=== PATIENT | male | born 1985 | race Two or more races ===

== ENCOUNTER 2016-09-20 12:08 | Emergency (ER) | payer SELFPAY ==
[~2016-09-20] VITALS: Ht 170.2 cm; Wt 104.5 kg
[~2016-09-20 12:08] MED LIST: DEXTLIQ PO; NEXI20CA PO
[2016-09-20 12:18] VITALS: BP 134/83; PULSE 66; RESP 16; TEMP 98.7; O2SAT 98
[2016-09-20] MEDS ORDERED: IBUP800T23 PO (12:31)
--- NOTE | 2016-09-20 12:48 | PD ---
HPI Chief Complaint: Back/ Neck Pain or Injury Time Seen by Provider: 12:47 Travel History International Travel<30 days: No Contact w/Intl Traveler<30days: No Traveled to known affect area: No History of Present Illness HPI 31-year-old male with PMH of chronic low back pain presents to the ED for evaluation of 24 hour history of low back pain radiating down the outer aspects of both legs, sparing the feet bilaterally. The patient endorses tingling. He denies numbness, weakness, limitations to range of motion of the lower extremities or loss of strength. He denies saddle anesthesia or incontinence. He treated with ibuprofen with only mild improvement of symptoms. PFSH Past Medical History Gastrointestinal Disorders: Yes (GASTRITIS) Herniated Disk: Yes Hypertension: Yes (BORDERLINE) Influenza Vaccination: No Past Surgical History Cholecystectomy: Yes (2011) Other Surgery: Yes (BACK SUGERY: 2 DISCS RUPTURED: 2011) Social History Alcohol Use: Yes (ON WEEKENDS) Tobacco Use: Yes (1-2 DAILY) Substance Use: No Allergies-Medications (Allergen,Severity, Reaction): Coded Allergies: Penicillin (Unverified Allergy, Unknown, "BEEN TOLD SINCE I WAS LITTLE THAT I WAS ALLERGIC. DON'T, 09/20/16) "BEEN TOLD SINCE I WAS LITTLE THAT I WAS ALLERGIC. DON'T KNOW WHAT IT DOES TO ME" Reported Meds & Prescriptions Reported Meds & Active Scripts Active Flexeril (Cyclobenzaprine HCl) 10 Mg Tab 10 Mg PO TID Diclofenac Sodium DR (Diclofenac Sodium) 50 Mg Tabdr 50 Mg PO TID Reported Ibuprofen 800 Mg Tab 800 Mg PO Q8H PRN Review of Systems Except as stated in HPI: all other systems reviewed are Neg Physical Exam Narrative GENERAL: Well-nourished, well-developed male in no acute distress. SKIN: Focused skin assessment warm/dry. HEAD: Normocephalic. EYES: No scleral icterus. No injection or drainage. NECK: Supple, trachea midline. No JVD or lymphadenopathy. CARDIOVASCULAR: Regular rate and rhythm without murmurs, gallops, or rubs. RESPIRATORY: Breath sounds equal bilaterally. No accessory muscle use. GASTROINTESTINAL: Abdomen soft, non-tender, nondistended. MUSCULOSKELETAL: No cyanosis, or edema. 2+ DP pulses bilaterally. 5/5 strength of dorsiflexion, plantar flexion, knee flexion and hip flexion bilaterally. Straight leg raise positive bilaterally. Sensation intact to light touch distally. BACK: No without obvious deformity. No CVA tenderness. No midline tenderness to palpation. Mild tenderness to palpation of the bilateral paraspinal and the sciatic notch. Data Data Last Documented VS Vital Signs Date Time Temp Pulse Resp B/P Pulse Ox O2 Delivery O2 Flow Rate FiO2 09/20/16 12:18 98.7 66 16 134/83 98 Orders Ketorolac Inj (Toradol Inj) (09/20/16 13:00) [facility] Medical Decision Making Medical Screen Exam Complete: Yes Emergency Medical Condition: Yes Differential Diagnosis Acute on chronic back pain versus musculoskeletal pain versus sciatica versus other Narrative Course 31-year-old male with PMH of chronic low back pain presents to the ED for evaluation of 24 hour history of low back pain radiating down the outer aspects of both legs, sparing the feet bilaterally. The patient endorses tingling. He denies numbness, weakness, limitations to range of motion of the lower extremities or loss of strength. He denies saddle anesthesia or incontinence. Vitals reviewed. Physical exam reveals a well-developed male in no acute distress. No midline tenderness to palpation of the lumbar spine. Mild to moderate tenderness to palpation of the paraspinal musculature in the lumbar area extending to the sciatic notch. Straight leg raise positive bite laterally. 5/5 strength of all groups of the lower extremities. Neurovascularly intact. Acute exacerbation of chronic low back pain. Patient was administered IM Toradol. He is prescribed a short course of anti- inflammatories and muscle relaxants. He is instructed to take the medication as prescribed, return to normal, gentle activity as tolerated, avoid driving while taking muscle relaxants, follow up with primary care provider. He indicated understanding of instructions and is agreeable to the care plan. The patient is stable and discharged home. Diagnosis Primary Impression: Acute exacerbation of chronic low back pain Referrals: Primary Care Physician Patient Instructions: Chronic Back Pain (ED), General Instructions Additional Instructions: Rest, hydrate. Resume normal, gentle activities as tolerated. No strenuous physical activities for the next few days A mixture of rest and activity as best for back pain. Do not spend too much time in bed. Take anti-inflammatory medications every 8 hours as prescribed, beginning tomorrow. Take Flexeril up to 3 times a day as needed for muscle spasm. Do not travel taking Flexeril. Applying ice or heat to areas with sore muscles may help to improve your patient. Do not apply ice/ heat for longer than 20 m/h. Follow-up with your primary care provider this week. Return to the ED for any urgent or emergent medical condition. Med/Other Pt SpecificInfo: Prescription(s) given Scripts Cyclobenzaprine (Flexeril)10 Mg Tab10 Mg PO TID #15 TAB Ref 0 Prov:Monty Torrez MD 09/20/[address] 50 Mg Tabdr50 Mg PO TID #15 TAB Ref 0 Prov:Monty Torrez MD 09/20/16 Disposition: 01 DISCHARGE HOME Condition: Stable Sarah Taveras Sep 20, 2016 12:48
[2016-09-20] MEDS ORDERED: CYCL1TAB29 PO (13:00)
[2016-09-20] MEDS ORDERED: KETOROLAC TROMETHAMINE 60 MG/2 ML (IM) VIAL IM ONE (13:00)
[2016-09-20] MEDS ORDERED: DICL50TA3 PO (13:00)
== END 2016-09-20 13:12 | disposition home or self-care (01) ==
LOC: PHEFT 12:08
DX: M54.9 Dorsalgia, unspecified (principal); I10 Essential (primary) hypertension; K29.70 Gastritis, unspecified, without bleeding; F17.200 Nicotine dependence, unspecified, uncomplicated
CPT/HCPCS: 96372; 99283; J1885